=== PATIENT | female | born 1995 | race Caucasian/White ===

== ENCOUNTER → 2016-08-10 | Outpatient (CLI) | payer OTHER ==
[~2016-08-10] MED LIST: BCPILLS PO
[2016-08-14 11:57] LABS: CHLAMYDIA TRACH RNA*** NOT DETECTED (NOT DETECTED); GC (NEIS GONORRHOEAE)RNA** NOT DETECTED (NOT DETECTED)
== END | disposition home or self-care (01) ==
LOC: C.LABSPEC 14:37
PROVIDERS: ATTEND Obstetrics & Gynecology
DX: Z12.4 Encounter for screening for malignant neoplasm of cervix (principal)

== ENCOUNTER → 2016-08-10 | Outpatient (CLI) | payer OTHER | END | disposition home or self-care (01) | LOC: C.PAPS 09:21 | PROVIDERS: ATTEND Obstetrics & Gynecology | DX: Z12.4 Encounter for screening for malignant neoplasm of cervix (principal) ==

== ENCOUNTER 2017-10-20 21:20 | Emergency (ER) | payer OTHER ==
[~2017-10-20] VITALS: Ht 162.6 cm; Wt 95.8 kg
[2017-10-20 21:24] VITALS: TEMP 36.8; Ht 162.6 cm; Wt 95.8 kg
[2017-10-20] MEDS ORDERED: AMOX875T3 PO (21:51)
[2017-10-20] MEDS ORDERED: PRED50TA PO (21:54)
--- NOTE | 2017-10-20 21:55 | EMERGENCY ROOM VISIT NOTE ---
History First contact with patient: 21:32 Chief Complaint: SORETHROAT Stated Complaint: SEVERE THROAT PAIN, EAR PAIN History of Present Illness The patient is a 22 year old female who presents to the Emergency Room with complaints of a sore throat. The patient reports that she initially developed symptoms 1 week ago. She states the symptoms initially improved, then returned about 5 days ago. She was seen 4 days ago by [facility] due to the pain and had a negative rapid strep test. A culture was obtained but she states there have been no results yet. She was told that her symptoms were consistent with strep pharyngitis and was prescribed amoxicillin. She has been taking this for the past 4 days without improvement. She complains of throat pain which is sharp and rated a 7/10. Her pain is worse with swallowing. She states that the glands in her neck hurt. She reports earaches. She has noticed white patches on her throat. She was initially taking ibuprofen for her symptoms. She states that she is now taking Robaxin which she got from her mother which sometimes helps her pain. She denies any rashes, fevers, cough or difficulty swallowing or breathing. She denies abdominal pain, nausea or vomiting. Review of Systems A complete 10 point review of systems was reviewed with the patient with pertinent positives and negatives as per history of present illness. All else were negative. Past Medical/Surgical History Medical Problems: (1) No Known Active Medical Problems Social History Smoking Status: Current Every Day Smoker Alcohol Use: occasionally Housing Status: lives alone Occupation Status: employed Current/Historical Medications Scheduled Amoxicillin (Amoxil), 875 MG PO BID Control Pills ( Control Pills), 1 TAB PO DAILY Prednisone (Prednisone), 50 MG PO DAILY Physical Exam Vital Signs Date Time Temp Pulse Resp B/P (MAP) Pulse Ox O2 Delivery O2 Flow Rate FiO2 10/20/17 21:31 98 18 21:24 36.8 113 19 148/91 98 Room Air Physical Exam VITALS: Vitals are noted on the nurse's note and reviewed by myself. GENERAL: This is a 22-year-old female, in no acute distress, nontoxic in appearance, well-developed well-nourished. SKIN: The skin was without rashes. EARS: External auditory canals clear, tympanic membranes pearly josue without erythema or effusion bilaterally. EYES: Pupils equal round and reactive to light and accommodation. NOSE: Patent, turbinates without inflammation or discharge. MOUTH: Mucous membranes moist. Tonsils are enlarged, 2+ bilaterally with white exudate present. Uvula midline. Airway patent. NECK: Supple without nuchal rigidity. Mild tender anterior lymphadenopathy. HEART: Regular rate and rhythm without murmurs gallops or rubs. LUNGS: Clear to auscultation bilaterally without wheezes, rales or rhonchi. NEURO: Patient was alert and oriented to person place and time. Medical Decision & Procedures Medications Administered Medications (Trade) Dose Ordered Sig/Chanel Route Start Time Stop Time Status Last Admin Dose Admin Prednisone (PredniSONE TAB) 50 mg NOW STAT PO 10/20/17 21:53 10/20/17 21:54 DC 10/20/17 22:05 50 MG Medical Decision Differential diagnosis includes strep pharyngitis, infectious mononucleosis, viral pharyngitis, peritonsillar abscess, retropharyngeal abscess, Helio's angina, among others. The patient was evaluated as above. Her physical exam is most consistent with strep pharyngitis. There is no evidence of peritonsillar or retropharyngeal abscess. The patient has a patent airway. I did discuss possibility of infectious mononucleosis and benefits/risks of testing. Patient prefers not to have any laboratory testing drawn at this time. She was informed that this is a possibility and if she has persistent symptoms or severe fatigue, she should be evaluated by her primary care provider for this. She is already taking an antibiotic at home. She will be placed on prednisone to help decrease inflammation. Conservative measures were discussed. She verbalized understanding of my assessment and treatment plan and was discharged home in good condition. Blood Pressure Screening Patient's blood pressure: Elevated blood pressure Blood pressure disposition: Elevated BP felt to be situational Impression Primary Impression: Exudative pharyngitis Departure Information Dispostion Home / Self-Care Condition GOOD Prescriptions Prednisone (Prednisone) 50 Mg Tab 50 MG PO DAILY for 4 Days, #4 TAB Prov: Sangeeta Obregon .DOM 10/20/17 Referrals Irwin Cabrera M.D. (PCP) Patient Instructions My [facility] Additional Instructions You were seen in the emergency department for your sore throat. Continue your antibiotics as prescribed. Prednisone, 50 mg daily as prescribed for the next 4 days. This will help to decrease inflammation in your throat. For pain and fever control, you can use the following [id number]-[id number] medicines (if >12 yo): - Regular strength (325mg/tab) Tylenol (acetaminophen) 2 tabs every 4-6 hours as needed. Do not exceed 12 tablets in a 24 hour period. Avoid taking more than 4 grams (4000 mg) of Tylenol per day. This includes any other sources of acetaminophen you may take on a regular basis. - Regular strength (200 mg/tab) Advil (ibuprofen) 3-4 tabs every 4-6 hours as needed. Do not exceed a dose of 3200 mg per day. - For best results, alternate dosing of Tylenol and Advil. In addition to your prescribed medications, you can also use the following home remedies: - Warm salt-water gargles 3 times per day can soothe your throat and help to fight infection. - Warm tea with honey can soothe your throat. Return to the emergency department if your symptoms persist or worsen over the next 2-3 days despite treatment course outlined above. Return to the emergency department if you develop the following symptoms of: inability to swallow solids , liquids, or drool; excessive wheezing or inability to catch your breath; or intractable fever or pain. Follow up with your primary care provider in 2-3 days from today's emergency department visit.
[2017-10-20 22:15] VITALS: BP 147/92; PULSE 88; O2SAT 98
== END 2017-10-20 22:17 | disposition home or self-care (01) ==
LOC: C.EDB 21:21 → C.EDC 22:17
DX: J02.9 Acute pharyngitis, unspecified (principal); F17.200 Nicotine dependence, unspecified, uncomplicated

== ENCOUNTER → 2018-02-15 | Outpatient (CLI) | payer OTHER ==
[~2018-02-15] MED LIST changes: +AMOX875T3 PO
== END | disposition home or self-care (01) ==
LOC: C.LABSPEC 17:53
PROVIDERS: ATTEND Obstetrics & Gynecology
DX: Z11.3 Encounter for screening for infections with a predominantly sexual mode of transmission (principal); Z11.8 Encounter for screening for other infectious and parasitic diseases

== ENCOUNTER → 2018-02-15 | Outpatient (CLI) | payer OTHER | END | disposition home or self-care (01) | LOC: C.PAPS 09:29 | PROVIDERS: ATTEND Obstetrics & Gynecology | DX: Z12.4 Encounter for screening for malignant neoplasm of cervix (principal); Z11.51 Encounter for screening for human papillomavirus (HPV); R87.610 Atypical squamous cells of undetermined significance on cytologic smear of cervix (ASC-US) ==